=== PATIENT | female | born 1995 | race Caucasian/White ===

== ENCOUNTER 2021-09-09 20:36 | Observation (INO) | payer MEDICAID ==
[~2021-09-09] VITALS: Ht 167.6 cm; Wt 68.0 kg
[2021-09-09] MEDS ORDERED: NALOXONE HCL 0.4 MG/ML AMP (NARCAN) IVP PRN (21:15)
[2021-09-09] MEDS ORDERED: MEPERIDINE 50 MG/ML VIAL IM PRN (21:15)
[2021-09-09] MEDS ORDERED: TERBUTALINE SULFATE 1 MG/ML VIAL SUBCUT ONE (21:15)
[2021-09-09] MEDS ORDERED: TERBUTALINE SULFATE 1 MG/ML VIAL SUBCUT PRN (21:30)
[2021-09-09 22:43] LABS: BILIRUBIN,URINE NEGATIVE (NEGATIVE); BLOOD, URINE NEGATIVE (NEGATIVE); COLOR,URINE YELLOW (YELLOW); GLUCOSE,URINE NEGATIVE (NEGATIVE); KETONES,URINE NEGATIVE (NEGATIVE); LEUKOCYTE ESTERASE ,URINE 3+ (NEGATIVE); NITRITE, URINE NEGATIVE (NEGATIVE); PH,URINE 7.5 (5.0-8.0); PROTEIN URINE TRACE (NEGATIVE)
[2021-09-09 22:51] LABS: CLARITY/URINE HAZY (CLEAR)
[2021-09-09 23:28] LABS: BARBITURATE, URINE NEGATIVE (NEG <=200); URINE AMPHETAMINE NEGATIVE (NEG <=500)
[2021-09-09 23:29] LABS: BENZODIAZEPINE, URINE NEGATIVE (NEG <=150); CANNABINOID, URINE NEGATIVE (NEG <=50); COCAINE, URINE NEGATIVE (NEG <=150); METHAMPHETAMINES SCREEN,URINE NEGATIVE (NEG <=500); OPIATE, URINE NEGATIVE (NEG <=100); PHENCYCLIDINE SCREEN,URINE NEGATIVE (NEG <=25); UR TRICYCLIC ANTIDEPRESSANTS NEGATIVE (NEG <=300); URINE METHADONE NEGATIVE (NEG <=200); URINE OXYCODONE SCREEN NEGATIVE (NEG <=100); URINE PROPOXYPHENE SCREEN NEGATIVE (NEG <=300)
[2021-09-09 23:56] LABS: BACTERIA,URINE MODERATE /HPF (None Seen)
[2021-09-10] MEDS ORDERED: NITROFURANTOIN MONOHYD/M-CRYST 100 MG CAPSULE (MacroBID) PO SCH (09:00)
== END 2021-09-10 00:10 | disposition home or self-care (01) ==
LOC: SPU 20:36
PROVIDERS: ADMIT Specialist; ATTEND Specialist
DX: O62.9 Abnormality of forces of labor, unspecified (principal); Z3A.36 36 weeks gestation of pregnancy
CPT/HCPCS: 80307; 81000; 81002; 87086; 96372; G0378; G0379; J3105; 59899

== ENCOUNTER 2021-09-14 04:00 | Observation (INO) | payer MEDICAID | END 2021-09-14 08:30 | disposition home or self-care (01) | LOC: SPU 04:00 | PROVIDERS: ADMIT Specialist; ATTEND Specialist | DX: O62.9 Abnormality of forces of labor, unspecified (principal); Z3A.37 37 weeks gestation of pregnancy | CPT/HCPCS: G0378 ==

== ENCOUNTER 2021-09-20 10:05 | Inpatient (IN) | payer BC, MEDICAID ==
[~2021-09-20] VITALS: Ht 167.6 cm; Wt 68.0 kg
[2021-09-20] MEDS ORDERED: NALBUPHINE HCL 10 MG/ML AMP IVP PRN ×2 (10:30→10:45)
[2021-09-20] MEDS ORDERED: TERBUTALINE SULFATE 1 MG/ML VIAL SUBCUT ONE (10:30)
[2021-09-20] MEDS ORDERED: LR 500 ML IV ONE ×2 (10:30→12:15)
[2021-09-20] MEDS ORDERED: OXYTOCIN/0.9 % SODIUM CHLORIDE 1,000 ML IV SCH ×2 (10:30→14:00)
[2021-09-20] MEDS ORDERED: LR 1,000 ML IV SCH (10:30)
[2021-09-20] MEDS ORDERED: LIGHT MINERAL OIL 10 ML VIAL MC ONE (10:35)
[2021-09-20] MEDS ORDERED: LIDOCAINE PF 1% 30ML(POUR BTL) INJ ONE (10:35)
[2021-09-20] MEDS ORDERED: NALOXONE HCL 0.4 MG/ML AMP (NARCAN) ONE (10:36)
[2021-09-20] MEDS ORDERED: AMPICILLIN SODIUM 2 GM in NS 100 ML IV ONE (10:45)
[2021-09-20] MEDS ORDERED: AMPICILLIN SODIUM 2 GM VIAL ONE (10:49)
[2021-09-20 10:57] LABS: BASOPHILS # (AUTO) 0.1 K/uL (0.0-0.2); BASOPHILS % (AUTO) 0.7 % (0.0-2.0); EOSINOPHILS # (AUTO) 0.1 K/uL (0.0-0.4); EOSINOPHILS % (AUTO) 1.1 % (0.0-4.0); HEMATOCRIT 32.4 % (36-48); HEMOGLOBIN 10.6 g/dL (12.0-16.0); LYMPHOCYTES # (AUTO) 1.9 K/uL (1.0-5.5); LYMPHOCYTES % (AUTO) 23.6 % (20.5-51.5); MEAN CORPUSCULAR HEMOGLOBIN 27 pg (27-31); MEAN CORPUSCULAR HGB CONC 33 % (32-36); MEAN CORPUSCULAR VOLUME 82 fL (79.0-98.0); MONOCYTES # (AUTO) 0.5 K/uL (0.0-1.0); MONOCYTES % (AUTO) 6.4 % (1.7-9.3); NEUTROPHILS # (AUTO) 5.6 K/uL (1.8-7.7); NEUTROPHILS % (AUTO) 68.2 % (40.0-70.0); PLATELET COUNT (AUTO) 249 K/uL (130-430); RED BLOOD CELL COUNT(AUTO) 3.97 MIL/uL (4.2-6.2); WHITE BLOOD COUNT (AUTO) 8.2 K/uL (4.8-10.8)
[2021-09-20] MEDS ORDERED: ePHEDrine sulfate 50 MG/ML VIAL IVP PRN (12:15)
[2021-09-20] MEDS ORDERED: FENT2mCg/mL-ROPIVA0.2%/NS EPID 200 ML EP SCH (12:15)
[2021-09-20] MEDS ORDERED: ROPIVACAINE HCL/PF 0.2% 200 ML ONE (12:19)
[2021-09-20] MEDS ORDERED: fentaNYL CITRATE/PF 100 MCG/2 ML AMP ONE (12:19)
[2021-09-20] MEDS ORDERED: BUPIVACAINE /PF 0.5% 30 ML VIAL ONE (13:21)
[2021-09-20] MEDS ORDERED: OXYTOCIN/0.9 % SODIUM CHLORIDE 1,000 ML IV ONE (14:00)
[2021-09-20] MEDS ORDERED: METHYLERGONOVINE MALEATE 0.2 MG TABLET PO PRN (14:00)
[2021-09-20] MEDS ORDERED: HYDROCORTISONE 0.5% CREAM 28.4 GM CREAM.GM. TP PRN (14:00)
[2021-09-20] MEDS ORDERED: OXYCODONE/ACETAMINOPHEN 5-325 TABLET PO PRN (14:00)
[2021-09-20] MEDS ORDERED: WITCH HAZEL LEAF 1 MED.PAD MED.PAD TP PRN (14:00)
[2021-09-20] MEDS ORDERED: NALOXONE HCL 0.4 MG/ML AMP (NARCAN) IVP PRN (14:00)
[2021-09-20] MEDS ORDERED: DERMOPLAST SPRAY TP PRN (14:00)
[2021-09-20] MEDS ORDERED: ANUSOL 1 EA SUPP.RECT (PREPARATION H) RC PRN (14:00)
[2021-09-20] MEDS ORDERED: HYDROcodone/ACETAMIN 5-325 MG TAB (NORCO/ VICODIN) PO PRN (14:00)
[2021-09-20] MEDS ORDERED: RHO(D) IMMUNE GLOBULIN/MALTOSE 1500 UNITS/1.3 ML (WINHRO) IM PRN (14:00)
[2021-09-20] MEDS ORDERED: MEASLES,MUMPS&RUBELLA VACC/PF 12500 UNIT/0.5 ML VIAL SUBQ PRN (14:00)
[2021-09-20] MEDS ORDERED: DIPH-TET-PERTUS Vaccine 0.5 ML VIAL (ADACEL) I.M. PRN (14:00)
[2021-09-20] MEDS ORDERED: LANOLIN 7 GM OINT. TP PRN (14:00)
[2021-09-20] MEDS ORDERED: AMPICILLIN SODIUM 1 GM in NS 50 ML IV SCH (14:45)
[2021-09-20] MEDS: IBUPROFEN 600 MG TABLET PO SCH (17:32)
[2021-09-20 18:13] VITALS: BP_SYST 112
[2021-09-20] MEDS ORDERED: SENNOSIDES/DOCUSATE SODIUM 1 TAB TABLET(SENOKOT-S) PO SCH (21:00)
[2021-09-20] MEDS ORDERED: TEMAZEPAM 15 MG CAPSULE PO PRN (21:00)
[2021-09-21] MEDS ORDERED: NALOXONE HCL 0.4 MG/ML AMP (NARCAN) IVP PRN (04:00)
[2021-09-21] MEDS ORDERED: MORPHINE SULFATE 10 MG/ML VIAL IM PRN (04:00)
[2021-09-21] MEDS: OXYCODONE/ACETAMINOPHEN 5-325 TABLET PO PRN ×4 (04:36→20:24)
[2021-09-21] MEDS: IBUPROFEN 600 MG TABLET PO SCH ×5 (05:49→23:54)
[2021-09-21 06:39] LABS: BASOPHILS # (AUTO) 0.1 K/uL (0.0-0.2); BASOPHILS % (AUTO) 0.6 % (0.0-2.0); EOSINOPHILS # (AUTO) 0.1 K/uL (0.0-0.4); EOSINOPHILS % (AUTO) 0.7 % (0.0-4.0); HEMATOCRIT 31.5 % (36-48); HEMOGLOBIN 10.1 g/dL (12.0-16.0); LYMPHOCYTES # (AUTO) 2.6 K/uL (1.0-5.5); MEAN CORPUSCULAR HEMOGLOBIN 27 pg (27-31); MEAN CORPUSCULAR HGB CONC 32 % (32-36); MEAN CORPUSCULAR VOLUME 83 fL (79.0-98.0); MONOCYTES # (AUTO) 0.7 K/uL (0.0-1.0); NEUTROPHILS # (AUTO) 8.2 K/uL (1.8-7.7); NEUTROPHILS % (AUTO) 70.7 % (40.0-70.0); PLATELET COUNT (AUTO) 245 K/uL (130-430); RED BLOOD CELL COUNT(AUTO) 3.81 MIL/uL (4.2-6.2); WHITE BLOOD COUNT (AUTO) 11.7 K/uL (4.8-10.8)
[2021-09-21] MEDS: DOCUSATE SODIUM 100 MG CAPSULE PO SCH (20:24)
[2021-09-22] MEDS: OXYCODONE/ACETAMINOPHEN 5-325 TABLET PO PRN ×2 (01:14→06:45)
[2021-09-22] MEDS: IBUPROFEN 600 MG TABLET PO SCH ×2 (06:01→12:22)
[2021-09-22] MEDS: DOCUSATE SODIUM 100 MG CAPSULE PO SCH (09:30)
[2021-09-22] MEDS ORDERED: OXYC-128 PO (13:57)
== END 2021-09-22 14:43 | disposition home or self-care (01) | DRG 560 ==
LOC: SPU 10:05
PROVIDERS: ADMIT Specialist; ATTEND Specialist
PROC: 10E0XZZ Delivery of Products of Conception, External Approach (ICD-10-PCS; principal; 2021-09-20)
PROC: 3E0R3BZ Introduction of Anesthetic Agent into Spinal Canal, Percutaneous Approach (ICD-10-PCS; 2021-09-20)
PROC: 00HU33Z Insertion of Infusion Device into Spinal Canal, Percutaneous Approach (ICD-10-PCS; 2021-09-20)
DX: O69.81X0 Labor and delivery complicated by cord around neck, without compression, not applicable or unspecified (principal); Z37.0 Single live birth; Z20.822 Contact with and (suspected) exposure to COVID-19; O80 Encounter for full-term uncomplicated delivery; Z3A.38 38 weeks gestation of pregnancy
CPT/HCPCS: 36415; 85025; 86592; 86886; 86900; 86901; 94760; J0290; J2001; J2300; J2310; J3010; J3490